=== PATIENT | male | born 1975 | race Caucasian/White ===

== ENCOUNTER 2017-01-23 16:29 | Emergency (ER) | payer MEDICAID ==
--- NOTE | 2017-01-23 16:46 | EDPHY ---
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 anxiety. HTN (pt stopped tx~3yrs ago) - Social History Smoking Status: Current every day smoker Constitutional: Initial Vital Signs Temperature (C) 37.2 C 01/23/17 16:30 Heart Rate 100 01/23/17 16:30 Respiratory Rate 18 01/23/17 16:30 Blood Pressure 177/137 H 01/23/17 16:30 O2 Sat (%) 95 01/23/17 16:30 O2 Delivery Mode Room Air Allergies/Adverse Reactions: some pain med Allergy (Unknown, Uncoded 01/23/17 16:36) Home Medications: Medication Instructions Recorded Amphet Asp and D/Amphet [Adderall 10 mg PO 01/23/17 10 MG (*)] Atenolol/Chlorthalidone 1 each PO DAILY #30 tablet 01/23/17 [Atenolol-Chlorthal 50-25 Tb] FLUoxetine [PROzac] 20 mg PO 01/23/17 QUEtiapine FUMARATE [Seroquel 300 mg PO 01/23/17 300mg (*)] Medical Decision Making ED Course/Re-evaluation: CHIEF COMPLAINT: Anxiety, hypertension HISTORY OF PRESENT ILLNESS: The patient is a 41 y/o male arriving with his girlfriend at the referral of his neurologist due to anxiety and hypertension. He says he was there because he was "trying to put a case together for disability" related to 13 concussions as a kid. While there, his pressure was over 200 systolic, which he says is normal when he is feeling anxious. He denies any new symptoms. No headache, chest pain, dyspnea, weakness, paresthesias, or other complaints. He was prescribed lisinopril, but stopped taking it 3 years ago and states, "I just stopped taking it during an aggressive divorce. I forgot to take the pills and didn't refill it. My doc offered to refill it it and I said no and that was it." REVIEW OF SYSTEMS: A 10 point review of systems was performed and is negative with the exception of the elements mentioned in the history of present illness. PHYSICAL EXAM: HR 98, BP 167/134, O2 Sat, RR. Temp noted General Appearance: Alert, well hydrated, appropriate, and non-toxic appearing. Head: Atraumatic without scalp tenderness or obvious injury Eyes: Pupils equal, round, reactive to light and accommodation, EOMI, no trauma , no injection. Nose: Atraumatic, no rhinorrhea, clear. Throat: Mucus membranes moist. Neck: Supple, non-tender, no lymphadenopathy. Respiratory: No retractions, no distress, no wheezes, and no accessory muscle use. Lungs are clear to auscultation bilaterally. Cardiovascular: Regular rate and rhythm, no murmurs, rubs, or gallops. Good capillary refill all extremities. Gastrointestinal: Abdomen is soft, non-tender, non-distended, no masses, no rebound, no guarding, no peritoneal signs. Musculoskeletal: Normal active ROM of all extremities, atraumatic. Neurological: Alert, appropriate, and interactive. The patient has non-focal cranial nerves, motor, sensory, and cerebellar exam. Skin: No rashes, good turgor, no nodules on palpation. PAST MEDICAL HISTORY: Hypertension - not on medication; anxiety; multiple concussions PAST SURGICAL HISTORY: Noncontributory SOCIAL HISTORY: Girlfriend at bedside. Not employed. DIAGNOSTICS/PROCEDURES/CRITICAL CARE TIME: The 12 lead EKG was interpreted by myself. Sinus rhythm. See hard copy and/or "tracemaster" electronic copy for interpretation. DIFFERENTIAL DIAGNOSIS: The differential diagnosis for the patient's hypertension included but was not limited to hypertensive urgency, hypertensive emergency, transient hypertension, renovascular hypertension, idiopathic hypertension, hypertensive with or without evidence of end-organ damage. MEDICAL DECISION MAKING: This is a 41 y/o male with a history of anxiety and hypertension that he is not currently on medication for who presents for evaluation of hypertension around 200 systolic measured earlier today at his neurology appointment. He appears anxious on exam, but otherwise has no remarkable findings. His symptoms are consistent with hypertensive urgency and anxiety and I believe he will be well- served by a low-dose beta samuel. No evidence of hypertensive emergency. Plan for IV, labs, and EKG to rule out other acute cardiac process. Work up is unremarkable. Patient will be discharged on 50mg Atenolol/25mg Chlorthalidone QD AM and given referral to PCP for follow up. His BP is 151/114 at discharge, which is his untreated BP and likely close to baseline for him, so we will administer 50mg PO Lopressor prior to discharge. He is comfortable with this plan. Return precautions discussed. - Data Points Laboratory Results: Laboratory Results 01/23/17 17:15 01/23/17 17:15 01/23/17 01/23/17 17:15 17:15 WBC 10.24 10^3/uL H 10^3/uL (3.80-9.50) RBC 5.28 10^6/uL 10^6/uL (4.40-6.38) Hgb 16.7 g/dL g/dL (13.7-17.5) Hct 45.3 % % (40.0-51.0) MCV 85.8 fL fL (81.5-99.8) MCH 31.6 pg pg (27.9-34.1) MCHC 36.9 g/dL H g/dL (32.4-36.7) RDW 12.1 % % (11.5-15.2) Plt Count 218 10^3/uL 10^3/uL (150-400) MPV 10.5 fL fL (8.7-11.7) Neut % (Auto) 56.7 % % (39.3-74.2) Lymph % (Auto) 34.1 % % (15.0-45.0) [place] % (Auto) 5.9 % % (4.5-13.0) Eos % (Auto) 1.9 % % (0.6-7.6) Baso % (Auto) 0.9 % % (0.3-1.7) Nucleat RBC Rel Count 0.3 % H % (0.0-0.2) Absolute Neuts (auto) 5.82 10^3/uL 10^3/uL (1.70-6.50) Absolute Lymphs (auto) 3.49 10^3/uL H 10^3/uL (1.00-3.00) Absolute Monos (auto) 0.60 10^3/uL 10^3/uL (0.30-0.80) Absolute Eos (auto) 0.19 10^3/uL 10^3/uL (0.03-0.40) Absolute Basos (auto) 0.09 10^3/uL 10^3/uL (0.02-0.10) Absolute Nucleated RBC 0.03 10^3/uL H 10^3/uL (0-0.01) Immature Gran % 0.5 % % (0.0-1.1) Immature Gran # 0.05 10^3/uL 10^3/uL (0.00-0.10) Sodium 135 mEq/L mEq/L (134-144) Potassium 4.5 mEq/L mEq/L (3.5-5.2) Chloride 106 mEq/L mEq/L (97-110) Carbon Dioxide 18 mEq/l L mEq/l (22-31) Anion Gap 11 mEq/L mEq/L (8-16) BUN 17 mg/dL mg/dL (7-23) Creatinine 0.7 mg/dL mg/dL (0.7-1.3) Estimated GFR > 60 Glucose 133 mg/dL H mg/dL (70-100) Calcium 8.9 mg/dL mg/dL (8.5-10.4) Total Bilirubin 0.7 mg/dL mg/dL (0.1-1.4) Conjugated Bilirubin 0.6 mg/dL H mg/dL (0.0-0.5) Unconjugated Bilirubin 0.1 mg/dL mg/dL (0.0-1.1) AST 40 IU/L IU/L (17-59) ALT 53 IU/L IU/L (21-72) Alkaline Phosphatase 54 IU/L IU/L (38-126) Troponin I < 0.012 ng/mL ng/mL (0.000-0.034) NT-Pro-B Natriuret Pep 16 pg/mL pg/mL (0-125) Total Protein 6.7 g/dL g/dL (6.3-8.2) Albumin 3.9 g/dL g/dL (3.5-5.0) Specimen Hemolysis 180 Departure - Departure Disposition: Home, Routine, Self-Care Clinical Impression: Hypertensive urgency Condition: Good Instructions: Atenolol/Chlorthalidone (By mouth), Hypertension (ED) Additional Instructions: 1. Take atenolol/chlorthalidone as prescribed every day. 2. Keep a blood pressure chart for the next 1-2 weeks and bring this to your follow-up appointment with your primary care provider. Take one measurement in the morning and one in the evening. 3. Follow up with your primary care provider in the next week. 4. Return to the ED for severe pain, chest pain, shortness of breath, vision changes, weakness or numbness on one side of your body, or other worsening of condition. Referrals: Daya Mclain MD [Primary Care Provider] - As per Instructions Prescriptions: Atenolol/Chlorthalidone [Atenolol-Chlorthal 50-25 Tb] 1 each PO DAILY #30 tablet Report Scribed for: Rudy Rodas Report Scribed by: Audrey Proctor Date of Report: 01/23/17 Time of Report: 16:47
--- NOTE | 2017-01-23 16:53 | CPEKG ---
Heart Rate: 96 RR Interval: 625 P-R Interval: 164 QRSD Interval: 86 QT Interval: 344 QTC Interval: 435 P [place]: 41 QRS [place]: 64 T Wave [place]: -17 EKG Severity - BORDERLINE ECG - EKG Impression: SINUS RHYTHM EKG Impression: BORDERLINE T ABNORMALITIES, INFERIOR LEADS Electronically Signed By: Rudy Rodas 23-Jan-2017 20:41:27
[2017-01-23 17:39] LABS: ALANINE AMINOTRANSFERASE 53 IU/L (21-72); ALBUMIN 3.9 g/dL (3.5-5.0); ALKALINE PHOSPHATASE 54 IU/L (38-126); ANION GAP 11 mEq/L (8-16); ASPARTATE AMINOTRANSFERASE 40 IU/L (17-59); BILIRUBIN,TOTAL 0.7 mg/dL (0.1-1.4); BILIRUBIN-CONJUGATED 0.6 mg/dL (0.0-0.5); BILIRUBIN-UNCONJUGATED 0.1 mg/dL (0.0-1.1); CALCIUM 8.9 mg/dL (8.5-10.4); CARBON DIOXIDE 18 mEq/l (22-31); CHLORIDE 106 mEq/L (97-110); CREATININE 0.7 mg/dL (0.7-1.3); GLOMERULAR FILTRATION RATE > 60; GLUCOSE 133 mg/dL (70-100); POTASSIUM 4.5 mEq/L (3.5-5.2); SODIUM 135 mEq/L (134-144); SPECIMEN HEMOLYSIS 180; TOTAL PROTEIN 6.7 g/dL (6.3-8.2)
[2017-01-23 17:50] LABS: TROPONIN I < 0.012 ng/mL (0.000-0.034)
[2017-01-23 18:12] LABS: % IMMATURE GRANULYOCYTES 0.5 % (0.0-1.1); ABSOLUTE IMMATURE GRANULOCYTES 0.05 10^3/uL (0.00-0.10); ABSOLUTE NRBC COUNT 0.03 10^3/uL (0-0.01); ADD DIFF? NO; ADD MORPH? NO; ADD SCAN? NO; ATYPICAL LYMPHOCYTE FLAG 0 (0-99); FRAGMENT RBC FLAG 0 (0-99); HEMATOCRIT 45.3 % (40.0-51.0); HEMOGLOBIN 16.7 g/dL (13.7-17.5); LEFT SHIFT FLG 0 (0-99); LIPEMIA HEMOLYSIS FLAG 90 (0-99); MEAN CELL HEMOGLOBIN 31.6 pg (27.9-34.1); MEAN CELL HEMOGLOBIN CONCENTR. 36.9 g/dL (32.4-36.7); MEAN CELL VOLUME 85.8 fL (81.5-99.8); MEAN PLATELET VOLUME 10.5 fL (8.7-11.7); NRBC-AUTO% 0.3 % (0.0-0.2); PLATELET CLUMPS FLAG 0 (0-99); PLATELET COUNT 218 10^3/uL (150-400); RED BLOOD CELL COUNT 5.28 10^6/uL (4.40-6.38); RED CELL DISTRIBUTION WIDTH 12.1 % (11.5-15.2)
[2017-01-23 18:23] VITALS: PULSE 90; RESP 16
[2017-01-23] MEDS ORDERED: METOPROLOL TARTRATE 50 MG TAB PO ONE (18:27)
[2017-01-23 18:36] VITALS: BP 151/114; TEMP 98.6; O2SAT 96
== END 2017-01-23 18:36 | disposition home or self-care (01) ==
DX: I16.0 Hypertensive urgency (principal); F17.200 Nicotine dependence, unspecified, uncomplicated
CPT/HCPCS: 80307; G0483

== ENCOUNTER 2017-09-05 12:20 | Emergency (ER) | payer MEDICAID ==
[2017-09-05] MEDS ORDERED: diphenhydrAMINE 25 MG CAP PO ONE (12:51)
--- NOTE | 2017-09-05 12:59 | EDPHY ---
H & P Time Seen by Provider: 09/05/17 12:48 HPI/ROS: Chief Complaint: Bee sting HPI: 42-year-old male states that he got stung on his left leg by a bee or wasp approximately 1 hr ago. He does not have a known allergy to bee stings but was concerned that his blood pressure was a little high and had some tingling in his throat. No shortness of breath. No difficulty swallowing. No nausea or vomiting. ROS: 10 point Review of Systems is negative except as noted in the HPI. PMH: Hypertension Social History: No smoking, no alcohol, no recreational drug use Family History: non-contributory Physical Exam: Gen: Awake, Alert, No Distress HEENT: Nose: no rhinorrhea Eyes: PERRLA, EOMI Mouth: Moist mucosa Neck: Supple, no JVD Chest: nontender, lungs clear to auscultation Heart: S1, S2 normal, no murmur Abd: Soft, non-tender, no guarding Back: no CVA tenderness, no midline tenderness Ext: no edema, non-tender, right leg there is a small insect bite on his left lateral calf. There is no erythema. There is no swelling. There is no hives. No signs of infection. 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 anxiety. HTN (pt stopped tx~3yrs ago) - Social History Smoking Status: Current every day smoker Constitutional: Initial Vital Signs Temperature (C) 36.9 C 09/05/17 12:30 Heart Rate 78 09/05/17 12:30 Respiratory Rate 18 09/05/17 12:30 Blood Pressure 158/110 H 09/05/17 12:30 O2 Sat (%) 97 09/05/17 12:30 O2 Delivery Mode Room Air Allergies/Adverse Reactions: No Known Allergies Allergy (Unverified 09/05/17 12:52) Home Medications: Medication Instructions Recorded Amphet Asp and D/Amphet [Adderall 10 mg PO 01/23/17 10 MG (*)] Atenolol/Chlorthalidone 1 each PO DAILY #30 tablet 01/23/17 [Atenolol-Chlorthal 50-25 Tb] FLUoxetine [PROzac] 20 mg PO 01/23/17 Lisinopril 09/05/17 Medical Decision Making ED Course/Re-evaluation: Patient status post bee sting. No evidence of acute allergic reaction. Will given some Benadryl because he is concerned. Will discharge with follow-up. Departure - Departure Disposition: Home, Routine, Self-Care Clinical Impression: Bee sting Condition: Good Instructions: Insect Bite or Sting (ED) Additional Instructions: Follow up with primary care physician in 2-3 days for any concerns. Return to the emergency department for difficulty breathing, cough, worsening rash, fevers, chills, fainting, or any other concerns. Referrals: Daya Mclain MD [Primary Care Provider] - As per Instructions
[2017-09-05 13:35] VITALS: BP 135/102
== END 2017-09-05 13:33 | disposition home or self-care (01) ==
LOC: CED 12:20
DX: T63.441A Toxic effect of venom of bees, accidental (unintentional), initial encounter (principal); I10 Essential (primary) hypertension; F17.200 Nicotine dependence, unspecified, uncomplicated

== ENCOUNTER 2018-07-30 05:46 | Emergency (ER) | payer MEDICAID | END 2018-07-30 06:56 | disposition home or self-care (01) | LOC: CED 05:46 ==